=== PATIENT | female | born 1980 | race Caucasian/White ===

== ENCOUNTER 2024-07-31 17:31 | Inpatient (IN) | payer MEDICAID, SELFPAY ==
--- NOTE | ~2024-07-31 | XR_ITS ---
EXAMINATION: XR CHEST CLINICAL INFORMATION: Chest pain COMPARISON: None available. TECHNIQUE: Frontal view of the chest was obtained. FINDINGS: The heart is moderate to markedly enlarged. There is mild central pulmonary vascular prominence. No gross pulmonary edema is seen. Left basilar atelectasis is present. No focal consolidations or large effusions. XR/XR chest 1V IMPRESSION: Cardiomegaly with mild pulmonary vascular congestion. Electronically signed by: Agapito Welsh MD 07/31/2024 06:39 PM [facility]
--- NOTE | ~2024-07-31 | CT_ITS ---
EXAMINATION: CT ANGIOGRAM CHEST CLINICAL INFORMATION: Shortness of breath. Elevated d-dimer. Rule out PE. COMPARISON: None available. TECHNIQUE: Multiple axial images were obtained through the chest after the administration of 65 mL of Omnipaque 350 intravenous contrast. Extensive vascular post-processing including two-dimensional and three-dimensional reformatted images were created and reviewed on an independent workstation. This CT examination was performed using dose optimization techniques as appropriate, variously including the following: *Automated exposure control *Adjustment of mA and/or kV according to patient size (this includes techniques or standardized protocols for targeted exams where dose is matched to indication/reason for exam; i.e. extremities or head) *Use of iterative reconstruction technique DLP: 317 mGy-cm FINDINGS: Pulmonary arteries: Normal caliber. No appreciable pulmonary emboli. Heart and other vasculature: Global cardiomegaly. Thoracic aorta is normal in caliber. Contrast material is refluxed into the hepatic veins. Lymph nodes: No appreciable adenopathy Lungs and pleura: Linear subsegmental atelectasis in the left lower lobe. Interlobular septal thickening in the lung apices and bases is most consistent with mild interstitial pulmonary edema. No focal consolidation or suspicious pulmonary nodules. Central airways are clear. Small bilateral dependent pleural effusions. Chest wall and bones: Multilevel degenerative disc disease and thoracic spine. No acute fractures. Upper abdomen: No appreciable abnormalities. Other findings: There is a 2.1 cm hypoattenuating nodule in the right thyroid gland. CT/CT angio chest PE protocol IMPRESSION: 1. No evidence of pulmonary emboli. 2. Cardiomegaly with mild interstitial pulmonary edema and small bilateral pleural effusions. 3. A 2.1 cm hypoattenuating nodule in the right thyroid gland. Based on the recommendations of the ACR Incidental Thyroid Findings Committee (JACR 2014; 12(2):143-50), further evaluation by thyroid ultrasound is recommended for solitary incidental thyroid nodules greater than or equal to 1.5 cm in largest axial dimension in patients age 35 years and older who do not have limited life expectancy or significant morbidities, unless clinically warranted. Fleischner guidelines were followed. Electronically signed by: Jose Armando Ross MD 07/31/2024 10:28 PM [facility]
[2024-07-31 17:34] VITALS: BP 206/125; PULSE 117; RESP 18; TEMP 36.1; O2SAT 98; BMI 29.3
--- NOTE | 2024-07-31 17:43 | ECG_ITS ---
Test Reason : HYPERTENSION/SOB Blood Pressure : / mmHG Vent. Rate : 109 BPM Atrial Rate : 109 BPM P-R Int : 164 ms QRS Dur : 094 ms QT Int : 358 ms P-R-T Axes : 039 -09 027 degrees QTc Int : 482 ms Sinus tachycardia Possible Left atrial enlargement Left ventricular hypertrophy ( R in aVL , Jose A product ) Possible Lateral infarct , age undetermined Abnormal ECG No previous ECGs available Referred By: Mukesh Garcia Electronically Signed By:Atif Rodriguez
--- NOTE | 2024-07-31 17:45 | ED_ITS ---
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 Thakkar HPI narrative: 43-year-old [place] woman presented today with shortness of breath, productive cough for the past 5 days. Patient's symptoms started a month ago with upper respiratory symptoms of coughing, sneezing, flu-like symptoms then patient started to have exertional dyspnea and orthopnea, no gain weight, no lower extremity swelling or edema, no sick contacts, no recent travel. Patient stated that the symptoms is worsening that she has dyspnea at rest now, patient is a smoker with white clear sputum coughing. No recent travel, no lower extremity swelling or edema or tenderness. Related Data Home Medications ?Medication ?Instructions ?Recorded ?Confirmed valsartan 320 1 tab PO DAILY 08/01/24 08/01/24 mg-hydrochlorothiazide 25 mg tablet Allergies Allergy/AdvReac Type Severity Reaction Status Date / Time honey Allergy Swelling Verified 08/01/24 06:31 Review of Systems 2 Review of Systems: All other systems are reviewed and are negative Constitutional: Reports as per HPI and Reports no additional constitutional complaints Eyes: Reports as per HPI and Reports no additional eye complaints Reports system reviewed and no additional complaints, except as documented Cardiovascular: Reports as per HPI and Reports no additional cardiovascular complaints Respiratory: Reports as per HPI and Reports no additional respiratory complaints Gastrointestinal: Reports as per HPI and Reports no additional gastrointestinal complaints Genitourinary: Reports no additional female genitourinary complaints Musculoskeletal: Reports no additional musculoskeletal complaints Skin/Breast: Reports system reviewed and no additional complaints, except as docu Psychiatric: Reports no additional psychiatric complaints Endocrine: Reports no additional endocrine complaints Hematologic/Lymphatic: Reports no additional hematologic/lymphatic complaints Allergic/Immunologic: Reports no additional allergic/immunologic complaints Reports system reviewed and no additional complaints, except as documented and Reports Abnormal speech present [facility] Past Medical History Medical History (Updated 08/01/24 @ 10:07 by Atif Rodriguez MD) Hypertension Social History Social History Household Members: None Housing: Apartment Do you presently have visiting nurse or other home services: No Patient Tobacco Use Status: Current everyday Tobacco user Tobacco use type: Cigarette Cigarettes Per Day: 2 service: No Physical Exam ED Vital Signs: Vital Signs - 24 hr 07/31/24 17:34 07/31/24 18:31 07/31/24 19:13 Temperature 97 F Pulse Rate 117 H 112 H Respiratory Rate 18 24 H Blood Pressure 206/125 H 187/133 H 193/124 H Pulse Oximetry 98 97 Oxygen Delivery Method Room Air Room Air 07/31/24 19:13 07/31/24 21:08 07/31/24 23:03 Temperature 97.5 F 97.5 F Pulse Rate 103 H 106 H 100 Respiratory Rate 20 15 Blood Pressure 193/124 H 176/118 H 172/122 H Pulse Oximetry 96 97 Oxygen Delivery Method Room Air Room Air 07/31/24 23:12 Temperature Pulse Rate 98 Respiratory Rate Blood Pressure 178/126 H Pulse Oximetry Oxygen Delivery Method BMI result Body Mass Index 29.3 Vital signs have been reviewed and appear to be correct. Blood pressure elevated. Heart rate normal. Respiratory rate normal. Temperature normal. Oxygen saturation normal. Appearance: Alert. Oriented X3. No acute distress. Head: Normal external exam. Normocephalic. Atraumatic. No [place] signs noted. No raccoon eyes noted Eyes: PERRLA. EOMI. Conjunctiva and sclera normal. Eyelids normal. ENT: TM's Normal. Pharynx normal. Uvula midline. Moist mucous membranes. No trismus noted. No drooling noted. No muffled voice noted. Neck: Normal inspection. Neck supple. FROM. No adenopathy. Thyroid Normal. No meningeal signs. No neck mass noted. CVS: Normal heart rate and rhythm. Heart sound normal. No murmurs noted. Pulses normal throughout. Respiratory: No respiratory distress. Painless inspiration. Breath sounds normal. No wheezes/rales/rhonchi noted. Chest nontender. No accessory muscle usage noted or decreased air movement noted. Abdomen: Soft and nontender. Bowel sounds normal in all 4 quadrants. No distention noted. No organomegaly noted. No visible injury noted. Back: No CVA tenderness. Full range of motion noted. Skin: Skin warm and dry. Normal skin color. Normal skin turgor. No rashes/lesions/lacerations noted. Extremities: No lower extremity edema. Extremities exhibit normal range of motion. Extremities nontender. Neuro: Oriented X 3. Cranial nerve exam: II-XII are grossly intact No motor deficit. No sensory deficit. Reflexes normal. Course Course Course Narrative: RME: Done by Katerina Garcia. 43-year-old female presents to ED for shortness of breath. Patient is hypotensive history of high blood pressure. We will do EEG? Evaluation. Patient to be brought back to the ED immediately due to blood pressure. Reevaluation(s) Reevaluation #1: 43-year-old female with 4 weeks history of shortness of breath worsening over the last 5 days, physical exam/chest x-ray consistent with CHF, patient was slight improvement after Lasix and nitro. Elevated troponin with out delta changes or without EKG ischemic changes patient received nitroglycerin/Lasix for diuresis, patient also received aspirin and metoprolol for elevated troponin. CTA is negative for pulmonary embolism. Will admit for further cardiac evaluation. Time: 22:31 Medications Administered Generic Name Dose Route Start Last Admin Trade Name Freq PRN Reason Stop Dose Admin Empagliflozin 10 mg 08/01/24 10:45 08/01/24 10:40 Empagliflozin 10 Mg Tablet PO 10 mg DAILY NADIRA Administration Enoxaparin Sodium 40 mg 08/01/24 09:00 08/01/24 10:41 Enoxaparin Sodium 40 Mg/0.4 Ml Syringe SUBCUT 40 mg Q24H NADIRA Administration Furosemide 40 mg 08/01/24 09:00 08/01/24 10:41 Furosemide 40 Mg/4 Ml Vial IVPUSH 40 mg BID@0900,1800 NADIRA Administration Protocol Losartan Potassium 50 mg 08/01/24 09:00 08/01/24 10:40 Losartan Potassium 50 Mg Tablet PO 50 mg DAILY NADIRA Administration Protocol Sodium Chloride 3 ml 08/01/24 00:00 08/01/24 10:40 0.9 % Sodium Chloride Flush 3 Ml Syringe IVFLUSH 3 ml QSHIFT NADIRA Administration Spironolactone 25 mg 08/01/24 09:00 08/01/24 10:39 Spironolactone 25 Mg Tablet PO 25 mg DAILY NADIRA Administration Protocol Discontinued Medications Generic Name Dose Route Start Last Admin Trade Name Freq PRN Reason Stop Dose Admin Aspirin 325 mg 07/31/24 19:34 07/31/24 20:14 Aspirin 325 Mg Tablet PO 07/31/24 19:35 325 mg ONCE ONE Administration Furosemide 40 mg 07/31/24 18:46 07/31/24 19:13 Furosemide 40 Mg/4 Ml Vial IVPUSH 07/31/24 18:47 40 mg ONCE ONE Administration Protocol Levofloxacin 750 mg in 150 mls @ 100 mls/hr 07/31/24 18:46 07/31/24 20:56 Levaquin IV 07/31/24 20:15 Infused ONCE ONE Infusion Iohexol 100 ml 07/31/24 20:13 07/31/24 20:14 Iohexol 350 Mg/Ml 100 Ml Infus..Btl IV 07/31/24 20:14 65 ml ONCE ONE Administration Metoprolol Tartrate 50 mg 07/31/24 22:40 07/31/24 23:12 Metoprolol Tartrate 50 Mg Tablet PO 07/31/24 22:41 50 mg ONCE ONE Administration Protocol Nitroglycerin 0.5 inch 07/31/24 18:46 07/31/24 19:13 Nitroglycerin 2 % Oint 1 Gm Packet TRANSDERMA 07/31/24 18:47 0.5 inch ONCE ONE Administration Medical Decision Making Differential Diagnosis Differential Diagnoses: The differential diagnosis associated with the presentation includes (Pneumonia, pneumothorax, pleural effusion, pulmonary embolism, severe anemia, upper respiratory infection, CHF, ACS, viral myocarditis, electrolyte derangement.) Admission/Observation Consideration of admission/observation: Escalation of care including admission/observation considered Lab Data MDM Lab Attestation statement: I reviewed the patient's lab results. 08/01/24 06:34 08/01/24 06:34 Labs: Lab Results 07/31/24 07/31/24 07/31/24 Range/Units 18:16 18:30 19:03 WBC 9.1 (4.8-10.8) X10*3/uL RBC 4.91 (4.20-5.50) X10*6/uL Hgb 13.2 (12.0-16.0) g/dl Hct 40.7 (37.0-47.0) % MCV 82.9 (80.0-98.0) fL MCH 26.9 L (27.0-33.0) pg MCHC 32.4 (31.0-35.0) g/dl RDW 14.7 (11.0-16.0) % Plt Count 382 (160-400) X10*3/uL MPV 9.9 (9.4-12.3) fL Immature Gran % (Auto) 0.2 (0.0-0.4) % Neut % (Auto) 65.6 (45-73) % Lymph % (Auto) 28.9 (20-40) % [place] % (Auto) 4.8 (2-11) % Eos % (Auto) 0.2 (0-4) % Baso % (Auto) 0.3 (0-2) % Lymph # (Auto) 2.6 (1.2-4.9) X10*3/uL [place] # (Auto) 0.4 (0.1-1.2) X10*3/uL Eos # (Auto) 0.0 (0.0-0.4) X10*3/uL Baso # (Auto) 0.0 (0.0-0.2) X10*3/uL Abs Immat Gran (auto) 0.02 (0.00-0.03) X10*3/uL Absolute Neuts (auto) 6.0 (2.0-8.3) x10*3/uL Absolute Nucleated RBC 0.000 (0.0-0.012) X10*3/uL Nucleated RBC % (auto) 0.0 (0.0-0.2) /100WBC PT 15.3 H (10.9-12.4) SEC INR 1.3 H (0.9-1.1) APTT 28.0 (26.0-36.8) SEC D-Dimer High Sensitivty 292 NG/ML Sodium 136 (135-145) mmol/L Potassium 3.5 (3.3-5.1) mmol/L Chloride 104 (96-108) mmol/L Carbon Dioxide 22 (22-29) mmol/L Anion Gap 14 (12-20) BUN 8 L (9-16) mg/dL Creatinine 0.71 (0.5-1.4) mg/dL Estim Creat Clear Calc 104.6 Estimated GFR > 60 Random Glucose 147 H (60-115) mg/dL Lactic Acid 1.7 (0.5-2.0) mmol/L Calcium 8.9 (8.4-10.2) mg/dL Total Bilirubin 1.5 H (0.0-1.0) mg/dL AST 33 H (5-31) U/L ALT 24 (0-31) U/L Alkaline Phosphatase 67 (39-117) U/L Lactate Dehydrogenase 261 H (122-220) U/L Troponin I High Sens 120.4 H* (<3.5-17.0) ng/L C-Reactive Protein 1.18 H (< or = 0.50) mg/dL Total Protein 6.3 L (6.5-8.0) g/dL Albumin 3.9 (3.5-5.0) g/dL TSH 3.42 (0.32-4.0) uIU/mL Beta HCG, Quant < 2 mIU/mL Urine Color Dark Yellow Urine Appearance Cloudy Urine pH 5.0 (5.0-9.0) Ur Specific [place] 1.025 (1.005-1.025) Urine Protein 100 (2+) H (Neg-Trace) mg/dL Urine Glucose (UA) Negative (Negative) mg/dL Urine Ketones Trace (Negative) mg/dL Urine Blood Moderate (2+) H (Negative) Urine Nitrite Negative (Negative) Ur Leukocyte Esterase Negative (Negative) Urine RBC 6-10 H (0-2) /HPF Urine WBC 0-5 (0-5) /HPF Ur Squamous Epith Cells >20 (0-2) /HPF Urine Bacteria None Seen (None Seen) Hyaline Casts >20 (0-2) /LPF Urine Yeast Present Urine Test NEGATIVE (NEGATIVE) Influenza Type A (PCR) NEGATIVE (Negative) Influenza Type B (PCR) NEGATIVE (Negative) RSV RNA Qual (PCR) NEGATIVE (Negative) SARS-CoV-2 RNA (RT-PCR) NEGATIVE (Negative) 07/31/24 Range/Units 20:35 WBC (4.8-10.8) X10*3/uL RBC (4.20-5.50) X10*6/uL Hgb (12.0-16.0) g/dl Hct (37.0-47.0) % MCV (80.0-98.0) fL MCH (27.0-33.0) pg MCHC (31.0-35.0) g/dl RDW (11.0-16.0) % Plt Count (160-400) X10*3/uL MPV (9.4-12.3) fL Immature Gran % (Auto) (0.0-0.4) % Neut % (Auto) (45-73) % Lymph % (Auto) (20-40) % [place] % (Auto) (2-11) % Eos % (Auto) (0-4) % Baso % (Auto) (0-2) % Lymph # (Auto) (1.2-4.9) X10*3/uL [place] # (Auto) (0.1-1.2) X10*3/uL Eos # (Auto) (0.0-0.4) X10*3/uL Baso # (Auto) (0.0-0.2) X10*3/uL Abs Immat Gran (auto) (0.00-0.03) X10*3/uL Absolute Neuts (auto) (2.0-8.3) x10*3/uL Absolute Nucleated RBC (0.0-0.012) X10*3/uL Nucleated RBC % (auto) (0.0-0.2) /100WBC PT (10.9-12.4) SEC INR (0.9-1.1) APTT (26.0-36.8) SEC D-Dimer High Sensitivty NG/ML Sodium (135-145) mmol/L Potassium (3.3-5.1) mmol/L Chloride (96-108) mmol/L Carbon Dioxide (22-29) mmol/L Anion Gap (12-20) BUN (9-16) mg/dL Creatinine (0.5-1.4) mg/dL Estim Creat Clear Calc Estimated GFR Random Glucose (60-115) mg/dL Lactic Acid (0.5-2.0) mmol/L Calcium (8.4-10.2) mg/dL Total Bilirubin (0.0-1.0) mg/dL AST (5-31) U/L ALT (0-31) U/L Alkaline Phosphatase (39-117) U/L Lactate Dehydrogenase (122-220) U/L Troponin I High Sens 137.4 H* (<3.5-17.0) ng/L C-Reactive Protein (< or = 0.50) mg/dL Total Protein (6.5-8.0) g/dL Albumin (3.5-5.0) g/dL TSH (0.32-4.0) uIU/mL Beta HCG, Quant mIU/mL Urine Color Urine Appearance Urine pH (5.0-9.0) Ur Specific [place] (1.005-1.025) Urine Protein (Neg-Trace) mg/dL Urine Glucose (UA) (Negative) mg/dL Urine Ketones (Negative) mg/dL Urine Blood (Negative) Urine Nitrite (Negative) Ur Leukocyte Esterase (Negative) Urine RBC (0-2) /HPF Urine WBC (0-5) /HPF Ur Squamous Epith Cells (0-2) /HPF Urine Bacteria (None Seen) Hyaline Casts (0-2) /LPF Urine Yeast Urine Test (NEGATIVE) Influenza Type A (PCR) (Negative) Influenza Type B (PCR) (Negative) RSV RNA Qual (PCR) (Negative) SARS-CoV-2 RNA (RT-PCR) (Negative) Independent Interpretation I performed an independent interpretation of an: Plain X-Ray (Chest: Cardiomegaly with mild pulmonary vascular congestion.) and CT Scan (CT angio of the chest:[place] [id number] CT Scan Report Signed Patient: Nani Camejo MR#: [id number] : 1980 Acct:[id number] Age/Sex: 43 / F ADM Date: 07/31/24 Loc: .ED Attending Dr: Ordering Physician: Irene Thakkar MD Date of Service: 07/31/) Radiology Impression Discussion of test interpretation with radiology: I have reviewed the radiologist's reading. Discharge Plan Discharge Clinical Impression: CHF (congestive heart failure) Patient Disposition: Admitted As Inpatient Interventions: Admission Worksheet (ED) Last Done: 08/01/24 02:24 Discharge Date/Time: 08/01/24 02:25
[2024-07-31 18:23] LABS: MANUAL DIFF FLAG NO
[2024-07-31 18:31] VITALS: BP 187/133; PULSE 112; RESP 24; O2SAT 97
[2024-07-31 18:31] LABS: Basophils Percent Auto 0.3 % (0-2); Eosinophils Percent Auto 0.2 % (0-4); Hematocrit 40.7 % (37.0-47.0); Hemoglobin 13.2 g/dl (12.0-16.0); Imm Gran Abs Auto 0.02 X10*3/uL (0.00-0.03); Imm Gran Pct Auto 0.2 % (0.0-0.4); Lymphocytes Absolute Auto 2.6 X10*3/uL (1.2-4.9); Lymphocytes Percent Auto 28.9 % (20-40); Mean Corpuscular HGB Conc 32.4 g/dl (31.0-35.0); Mean Corpuscular Hemoglobin 26.9 pg (27.0-33.0); Mean Corpuscular Volume 82.9 fL (80.0-98.0); Mean Platelet Volume 9.9 fL (9.4-12.3); Monocytes Absolute Auto 0.4 X10*3/uL (0.1-1.2); Monocytes Percent Auto 4.8 % (2-11); Neutrophils Percent Auto 65.6 % (45-73); Platelet Count 382 X10*3/uL (160-400); Red Blood Count 4.91 X10*6/uL (4.20-5.50); Red Cell Distribution Width 14.7 % (11.0-16.0); White Blood Count 9.1 X10*3/uL (4.8-10.8)
[2024-07-31 18:41] LABS: Alanine Aminotransferase 24 U/L (0-31); Albumin Level 3.9 g/dL (3.5-5.0); Alkaline Phosphatase 67 U/L (39-117); Anion Gap 14 (12-20); Aspartate Amino Transferase 33 U/L (5-31); Bilirubin Total 1.5 mg/dL (0.0-1.0); Blood Urea Nitrogen 8 mg/dL (9-16); Calcium 8.9 mg/dL (8.4-10.2); Carbon Dioxide 22 mmol/L (22-29); Chloride 104 mmol/L (96-108); Creatinine Clr Calc Pharmacy 104.6; Estimated Glomerular Filt Rate > 60; Glucose Random 147 mg/dL (60-115); Potassium 3.5 mmol/L (3.3-5.1); Sodium 136 mmol/L (135-145); Total Protein 6.3 g/dL (6.5-8.0)
[2024-07-31 18:47] LABS: Appearance Urine Cloudy; Color Urine Dark Yellow; Glucose Urine UA Negative (Negative); Leukocyte Esterase Urine Negative (Negative); Nitrite Urine Negative (Negative); Specific Gravity - Urine 1.025 (1.005-1.025); UMIC TRIGGER UACC YES; Urine Blood Moderate (2+) (Negative); Urine Ketones Trace mg/dL (Negative); Urine Protein 100 (2+) mg/dL (Neg-Trace)
[2024-07-31 18:48] LABS: UPreg QC Valid YES; Urine Pregnancy NEGATIVE (NEGATIVE)
[2024-07-31 18:49] LABS: HCG Quantitative < 2 mIU/mL
[2024-07-31 19:01] LABS: Influenza A PCR NEGATIVE (Negative); Influenza B PCR NEGATIVE (Negative); Resp Syncy Virus RNA Qual PCR NEGATIVE (Negative); SARS COV2 PCR INHOUSE NEGATIVE (Negative)
[2024-07-31 19:02] LABS: Bacteria Urine None Seen (None Seen); Hyaline Casts Urine >20 /LPF (0-2); Squamous Epithelial Cell Urine >20 /HPF (0-2); WBC Urine 0-5 /HPF (0-5)
[2024-07-31 19:08] LABS: Troponin-I High Sensitivity 120.4 ng/L (<3.5-17.0)
[2024-07-31 19:13] VITALS: BP 193/124; PULSE 103
[2024-07-31] MEDS: Furosemide 40 MG/4 ML VIAL IVPUSH (19:13)
[2024-07-31] MEDS: levoFLOXacin/D5W 750 MG/150 ML PIGGYBACK 100 MG IV (19:13)
[2024-07-31] MEDS: Nitroglycerin 2 % Oint 1 GM Packet 0.5 INCH TRANSDERMA (19:13)
[2024-07-31 19:20] LABS: INTERNATIONAL NORM RATIO 1.3 (0.9-1.1); Prothrombin Time 15.3 SEC (10.9-12.4)
[2024-07-31 19:22] LABS: D Dimer High Sensitivity 292 NG/ML
[2024-07-31 19:24] LABS: Lactic Acid 1.7 mmol/L (0.5-2.0)
[2024-07-31] MEDS: Aspirin 325 MG TABLET PO (20:14)
[2024-07-31] MEDS: iohexoL 350 MG/ML 100 ML INFUS..BTL IV (20:14)
[2024-07-31 21:06] LABS: Troponin-I High Sensitivity 137.4 ng/L (<3.5-17.0)
[2024-07-31 21:08] VITALS: BP 176/118; PULSE 106; RESP 20; TEMP 36.4; O2SAT 96
[2024-07-31 23:03] VITALS: BP 172/122; PULSE 100; RESP 15; TEMP 36.4; O2SAT 97
[2024-07-31 23:12] VITALS: BP 178/126; PULSE 98
[2024-07-31] MEDS: Metoprolol Tartrate 50 MG TABLET PO (23:12)
--- NOTE | 2024-07-31 23:42 | PM.IMHP ---
History of Present Illness Date of Service: 07/31/24 Chief Complaint: Dyspnea A 43 years old lady with PMH of HTN presents to the hospital with 1 week of worsening dyspnea and orthopena. The patient reports getting sick 3 weeks ago with upper respiratory track infection with cough and myalgia that she did not completely recovered from as she started to feel more short of breath with exertion since then. over the last week she has been having more dyspnea with short distences and has to stop more often to catch her breath. she can not sleep on her back anymore and has been sleeping semi-sitting position. No chest pain, palpitations, vomiting, diarrhea or urinary symptoms. but she reported nausea on occasions. In ED found to be hypertensive and tachycardic. Elevated Trop of 126 and 138. EKG w LVH bit no ST\T wave changes to suggest ACS. BNP pending. CXR showed mild vascular congestion. CTA negative for PE but showing small effusions and congestion. will be admitted for further work up and management. Review of Systems Review of Systems: No fever, chills or weakness No chest pain, palpitation reporting shortness of breath, dysnpea and orthopnea No abdominal pain, nausea or vomiting No urinary symptoms No any rash or wounds PMFSH Medical History Hypertension Social History Smoked in Last 30 Days: Yes Use of substances other than those prescribed or required for medical reasons: No Advance Directives: No Advance Directives Information Provided: Yes Patient : No Meds Allergies Allergy/AdvReac Type Severity Reaction Status Date / Time No Known Allergies Allergy Verified 07/31/24 17:43 Active Medications: Current Medications Acetaminophen (Acetaminophen 325 Mg Tablet) 650 mg PO Q6H PRN PRN Reason: Pain, Mild 1-3,fever,headache Calcium Carbonate (Calcium Carbonate 750 Mg Tab.Chew) 750 mg PO Q4H PRN PRN Reason: Heartburn Enoxaparin Sodium (Enoxaparin Sodium 40 Mg/0.4 Ml Syringe) 40 mg SUBCUT Q24H NADIRA Magnesium Hydroxide (Milk Of Magnesia 30 Ml Oral.Susp) 30 ml PO DAILY PRN PRN Reason: Constipation Melatonin (Melatonin 3 Mg Tablet) 6 mg PO BEDTIME PRN PRN Reason: Insomnia Ondansetron HCl (Ondansetron Hcl 4 Mg/2 Ml Vial) 4 mg IVPUSH Q8H PRN PRN Reason: Nausea and Vomiting Sodium Chloride (0.9 % Sodium Chloride Flush 3 Ml Syringe) 3 ml IVFLUSH QSHIFT NADIRA Physical Exam Vital Signs and Narrative: Vital Signs: Last Vital Signs Temp 97.5 F 07/31/24 23:03 Pulse 98 07/31/24 23:12 Resp 15 07/31/24 23:03 BP 178/126 H 07/31/24 23:12 Pulse Ox 97 07/31/24 23:03 O2 Del Method Room Air 07/31/24 23:03 BMI result Body Mass Index 29.3 Const: Other: Constitutional : Awake, interactive, not in distress Neck : Normal inspection, Supple Cardiovascular : RRR, elevated JVP, trace bilateral lower extremity edema Respiratory : fair bilateral air entry, no clear crackles, wheezes or rhonchi Gastrointestinal: soft, lax, Normal bowel sounds, Non tender Skin : Warm, Dry Neurological : Alert & oriented x3, No focal deficit Results Labs 07/31/24 18:16 07/31/24 18:16 Labs: Laboratory Results - last 24 hr 07/31/24 07/31/24 07/31/24 18:16 18:30 19:03 MCV 82.9 MCH 26.9 L MCHC 32.4 RDW 14.7 Plt Count 382 MPV 9.9 Immature Gran % (Auto) 0.2 Neut % (Auto) 65.6 Lymph % (Auto) 28.9 [place] % (Auto) 4.8 Eos % (Auto) 0.2 Baso % (Auto) 0.3 Lymph # (Auto) 2.6 [place] # (Auto) 0.4 Eos # (Auto) 0.0 Baso # (Auto) 0.0 Abs Immat Gran (auto) 0.02 Absolute Neuts (auto) 6.0 Absolute Nucleated RBC 0.000 Nucleated RBC % (auto) 0.0 PT 15.3 H INR 1.3 H APTT 28.0 D-Dimer High Sensitivty 292 Anion Gap 14 Estim Creat Clear Calc 104.6 Estimated GFR > 60 Random Glucose 147 H Lactic Acid 1.7 Calcium 8.9 Total Bilirubin 1.5 H AST 33 H ALT 24 Alkaline Phosphatase 67 Troponin I High Sens 120.4 H* Total Protein 6.3 L Albumin 3.9 Beta HCG, Quant < 2 Urine Color Dark Yellow Urine Appearance Cloudy Urine pH 5.0 Ur Specific [place] 1.025 Urine Protein 100 (2+) H Urine Glucose (UA) Negative Urine Ketones Trace Urine Blood Moderate (2+) H Urine Nitrite Negative Ur Leukocyte Esterase Negative Urine RBC 6-10 H Urine WBC 0-5 Ur Squamous Epith Cells >20 Urine Bacteria None Seen Hyaline Casts >20 Urine Yeast Present Urine Test NEGATIVE Influenza Type A (PCR) NEGATIVE Influenza Type B (PCR) NEGATIVE RSV RNA Qual (PCR) NEGATIVE SARS-CoV-2 RNA (RT-PCR) NEGATIVE 07/31/24 20:35 MCV MCH MCHC RDW Plt Count MPV Immature Gran % (Auto) Neut % (Auto) Lymph % (Auto) [place] % (Auto) Eos % (Auto) Baso % (Auto) Lymph # (Auto) [place] # (Auto) Eos # (Auto) Baso # (Auto) Abs Immat Gran (auto) Absolute Neuts (auto) Absolute Nucleated RBC Nucleated RBC % (auto) PT INR APTT D-Dimer High Sensitivty Anion Gap Estim Creat Clear Calc Estimated GFR Random Glucose Lactic Acid Calcium Total Bilirubin AST ALT Alkaline Phosphatase Troponin I High Sens 137.4 H* Total Protein Albumin Beta HCG, Quant Urine Color Urine Appearance Urine pH Ur Specific [place] Urine Protein Urine Glucose (UA) Urine Ketones Urine Blood Urine Nitrite Ur Leukocyte Esterase Urine RBC Urine WBC Ur Squamous Epith Cells Urine Bacteria Hyaline Casts Urine Yeast Urine Test Influenza Type A (PCR) Influenza Type B (PCR) RSV RNA Qual (PCR) SARS-CoV-2 RNA (RT-PCR) Imaging Radiologist's Impressions: Impressions Chest X-Ray 07/31/24 17:50 IMPRESSION: Cardiomegaly with mild pulmonary vascular congestion. Electronically signed by: Agapito Welsh MD 07/31/2024 06:39 PM [facility] [place] Chest CTA 07/31/24 19:37 IMPRESSION: 1. No evidence of pulmonary emboli. 2. Cardiomegaly with mild interstitial pulmonary edema and small bilateral pleural effusions. 3. A 2.1 cm hypoattenuating nodule in the right thyroid gland. Based on the recommendations of the ACR Incidental Thyroid Findings Committee (JACR 2014; 12(2):143-50), further evaluation by thyroid ultrasound is recommended for solitary incidental thyroid nodules greater than or equal to 1.5 cm in largest axial dimension in patients age 35 years and older who do not have limited life expectancy or significant morbidities, unless clinically warranted. Fleischner guidelines were followed. Electronically signed by: Jose Armando Ross MD 07/31/2024 10:28 PM EST Assessment and Plan (1) Elevated troponin: Status: Acute (2) CHF (congestive heart failure): Status: Acute (3) Thyroid nodule: Status: Acute Plan A 43 years old lady with PMH of HTN presents to the hospital with 1 week of worsening dyspnea and orthopena. Orthopnea, Dyspnea likely 2/2 acute onset CHF, unspecified could be post viral, chronic HTN pending BNP CXR and CTA reporting increase congestion check Echo check TSH IV Lasix I\O Elevated Trop I no delta change, likely demand related check LDH, ESR and CRP trend Trop I Cardiology consult Uncontrolled HTN Patient uses [employer] medicine not sure of the name Start Losartan and Amlodipine for now Thyroid nodule CTA reporting 2.1 cm nodule for OP US evaluation DVT PPx Lovenox The patient will need 2 overnight hospital stay for evalaution of CHF exacerbation pending Echo and cardiology evaluation Quality Stroke Does the patient have a stroke diagnosis?: No VTE Prior VTE?: No VTE Risk Level:: Medical - moderate - high VTE Device Contraindication: Treatment Not Indicated VTE Drug Contraindication: N/A - Med Ordered
[2024-08-01] VITALS (7 sets, daily range): BP systolic 160–180; BP diastolic 93–100; PULSE 86–100; RESP 16–20; TEMP 36.4–37.1; O2SAT 94–97
[2024-08-01 00:06] LABS: C Reactive Protein 1.18 mg/dL (< or = 0.50); Lactate Dehydrogenase 261 U/L (122-220)
[2024-08-01 00:25] LABS: Erythrocyte Sedimentation Rate 2 MM/HR (0-20)
[2024-08-01 00:40] LABS: Thyroid Stimulating Hormone 3.42 uIU/mL (0.32-4.0)
[2024-08-01 06:44] LABS: MANUAL DIFF FLAG NO
[2024-08-01 06:47] LABS: Basophils Percent Auto 0.3 % (0-2); Eosinophils Percent Auto 0.5 % (0-4); Hematocrit 39.1 % (37.0-47.0); Hemoglobin 12.4 g/dl (12.0-16.0); Imm Gran Abs Auto 0.03 X10*3/uL (0.00-0.03); Imm Gran Pct Auto 0.3 % (0.0-0.4); Lymphocytes Absolute Auto 2.4 X10*3/uL (1.2-4.9); Lymphocytes Percent Auto 27.3 % (20-40); Mean Corpuscular HGB Conc 31.7 g/dl (31.0-35.0); Mean Corpuscular Hemoglobin 26.1 pg (27.0-33.0); Mean Corpuscular Volume 82.3 fL (80.0-98.0); Mean Platelet Volume 9.8 fL (9.4-12.3); Monocytes Absolute Auto 0.6 X10*3/uL (0.1-1.2); Neutrophils Absolute Auto 5.6 x10*3/uL (2.0-8.3); Neutrophils Percent Auto 64.6 % (45-73); Platelet Count 366 X10*3/uL (160-400); Red Blood Count 4.75 X10*6/uL (4.20-5.50); Red Cell Distribution Width 14.6 % (11.0-16.0); White Blood Count 8.7 X10*3/uL (4.8-10.8)
--- NOTE | 2024-08-01 07:00 | CA_ITS ---
Transthoracic Echocardiogram Patient (Last, First, Middle): Nani Camejo, Gender: Female Date of : 1980 Age: 43 Procedure Date: 08/01/2024 Procedure Type: Transthoracic Echocardiogram Location: [facility] [place] Height: 165.1 cm Weight: 79.83 kg BSA: 1.87 m2 Heart Rate: 95 bpm BP: 180 / 100 mmHg Manugrapher: AHKEEM Referring MD: Nel Koch MD Symptoms: New onset heart failure Study Quality: Adequate w/Contrast ECG Rhythm: Tachycardia Conclusions: - Moderately increased left ventricular cavity size. There is mildly increased left ventricular wall thickness. The left ventricular systolic function is severely decreased. The visually estimated ejection fraction is between 20-25%. - Normal right ventricular cavity size and systolic function. - The left atrium is severely dilated. The right atrium is likely dilated. Findings Procedure Information Contrast agent, definity, is being given per protocol without apparent complications. Left Ventricle Moderately increased left ventricular cavity size. There is mildly increased left ventricular wall thickness. The left ventricular systolic function is severely decreased. The visually estimated ejection fraction is between 20 25%. There is moderate global hypokinesis. Abnormal diastolic function is noted. Spectral Doppler is indicative of a restrictive filling pattern. Elevated filling pressures. Right Ventricle Normal right ventricular cavity size and systolic function. Atria The left atrium is severely dilated. The right atrium is likely dilated. Aortic Valve There is no aortic valve stenosis. There is no aortic valve regurgitation. Trileaflet aortic valve. Mild thickening of the non coronary cusp of the aortic valve. Mitral Valve The mitral valve appears normal. There is trace mitral valve regurgitation. There is no mitral valve stenosis. Mild apical tethering of the mitral valve leaflets with mild central mitral regurgitation. Pulmonic Valve The pulmonic valve is normal. There is trace pulmonic valve regurgitation. Tricuspid Valve There is trace tricuspid valve regurgitation. Normal right atrial pressure. There is no evidence of pulmonary hypertension. Great Vessels All visible segments of the aorta are normal in size. The visualized portions of the pulmonary artery and branches are normal. Venous The inferior vena cava is normal in size and collapses greater than 50% with inspiration. Pericardium/Pleural There is no evidence of pericardial effusion. There is a trivial pericardial effusion. Prior Study Comparison No prior study available for comparison. Measurements 2D Linear Measurements IVSd: 1.08 0.6-0.9/0.6-1.0 cm LVIDd: 5.89 3.9-5.3/4.2-5.9 cm LVIDd Index: 3.15 2.4-3.2/2.2-3.1 cm/m2 LVIDs: 5.11 2.0-3.6 cm LVPWd: 1.24 0.7-1.1 cm LA Diam: 4.40 2.7-3.8/3.0-4.0 cm LAIDs Index: 2.35 1.5-2.3 cm/m2 LV Mass: 363.01 67-162/88-224 g LV Mass Index: 194.12 43-95/49-115 g/m2 LVOT Diam: 2.00 3.0+(-)1.3 cm 2D Systolic Function EF 4C: 24.20 >55% EF 2C: 42.90 >55% EF BiP: 35.00 >55% Mitral Valve MV Pk E: 1.33 MV PK A: 0.39 MV Decel Time: 180.00 E/A: 3.40 E'Lateral: 6.53 E'Medial: 4.03 E/E' Med: 33.00 E/E' Lat: 20.40 PHT: 53.00 MVA PHT: 4.15 Decel [place]: 7.43 MR Vol - PW Dopp: 6.52 MR VTI: 1.63 MR ERO: 4.00 MR Alias Martinez: 0.39 MR RAD: 0.30 Aortic Valve AoV Pk Martinez: 1.49 AoV Mn Martinez: 1.04 AoV VTI: 0.26 AoV Pk Grad: 9.00 Aov Mn Grad: 5.00 LALIT Cont.VTI: 2.24 LVOT LVOT Pk Martinez: 1.11 LVOT Mn Martinez: 0.78 LVOT VTI: 0.19 LVOT Pk Grad: 5.00 LVOT Mn Grad: 3.00 LVOT Diam: 2.00 LVOT Area: 3.14 Diastolic Function MV Pk E: 1.33 MV Pk A: 0.39 E/A: 3.40 E'Medial: 4.03 E/E' Med: 33.00 E' Laterial: 6.53 E/E' Lat: 20.40 Right Ventricle TAPSE (mm): 23.40 TVS' Martinez: 12.40 Tricuspid Valve TR Pk Martinez: 2.49 TR Pk Grad: 25.00 RA Press: 3.00 RVSP: 28.00 Great Vessels Aorta Sinus of Valsalva: 2.70 2.0-3.5 cm Ao Asc: 3.10 2.1-3.4 cm Pulmonary Valve PV Pk Martinez: 0.94 Peak PV Grad: 4.00 Updated in Other Vendor System with Status of Final Atif Rodriguez MD electronically signed on 08/01/2024 10:32:00 AM with status of Final
[2024-08-01 07:01] LABS: Alanine Aminotransferase 23 U/L (0-31); Albumin Level 3.6 g/dL (3.5-5.0); Alkaline Phosphatase 60 U/L (39-117); Anion Gap 11 (12-20); Aspartate Amino Transferase 39 U/L (5-31); Bilirubin Total 1.3 mg/dL (0.0-1.0); Blood Urea Nitrogen 9 mg/dL (9-16); Calcium 8.6 mg/dL (8.4-10.2); Carbon Dioxide 26 mmol/L (22-29); Chloride 102 mmol/L (96-108); Creatinine Clr Calc Pharmacy 110.8; Estimated Glomerular Filt Rate > 60; Glucose Random 93 mg/dL (60-115); Magnesium 1.6 mg/dL (1.6-2.6); Potassium 3.2 mmol/L (3.3-5.1); Sodium 136 mmol/L (135-145); Total Protein 5.9 g/dL (6.5-8.0)
[2024-08-01 07:38] LABS: Troponin-I High Sensitivity 142.6 ng/L (<3.5-17.0)
--- NOTE | 2024-08-01 08:01 | PHA.MEDREC ---
Addendum entered by Roberta Paredes misha 08/01/24 08:04: Pt takes 350mg valsartan and 25mg HCTZ in brand name Co-Diovan (she wrote Codovian) Original Note: Pharmacy Consult ? Medication Reconciliation Pharmacy has completed the medication reconciliation. Spoke with pt at bedside to confirm medications. Pt states she is on only 1 medication but is only available from [place] and is not available in the [place]. She wrote the medication name as Codovian 350/25mg . Upon researching this medication, I believe it to be Co-Diovan, which is Valsartan 350mg & HCTZ 25mg.
--- NOTE | 2024-08-01 08:48 | PM.CNCAR ---
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 She was taking some Irish medicine which we do not know the exact generic name yet. She is presenting with 5 days of shortness of breath orthopnea and PND. Significantly elevated blood pressures. Short of breath with minimal activities. No chest discomfort. She has mildly elevated troponin levels. She is quite symptomatic. She is saying she had workup done in [place] for secondary causes of hypertension and no cause was found. Labs EKGs reviewed. [facility] Past Medical History Medical History (Updated 08/01/24 @ 10:07 by Atif Rodriguez MD) Hypertension Social History Social History Household Members: None Housing: Apartment Do you presently have visiting nurse or other home services: No Patient Tobacco Use Status: Current everyday Tobacco user Tobacco use type: Cigarette Cigarettes Per Day: 2 Meds Allergies Allergy/AdvReac Type Severity Reaction Status Date / Time honey Allergy Swelling Verified 08/01/24 06:31 Active Medications: Current Medications Acetaminophen (Acetaminophen 325 Mg Tablet) 650 mg PO Q6H PRN PRN Reason: Pain, Mild 1-3,fever,headache Calcium Carbonate (Calcium Carbonate 750 Mg Tab.Chew) 750 mg PO Q4H PRN PRN Reason: Heartburn Enoxaparin Sodium (Enoxaparin Sodium 40 Mg/0.4 Ml Syringe) 40 mg SUBCUT Q24H NADIRA Magnesium Hydroxide (Milk Of Magnesia 30 Ml Oral.Susp) 30 ml PO DAILY PRN PRN Reason: Constipation Melatonin (Melatonin 3 Mg Tablet) 6 mg PO BEDTIME PRN PRN Reason: Insomnia Ondansetron HCl (Ondansetron Hcl 4 Mg/2 Ml Vial) 4 mg IVPUSH Q8H PRN PRN Reason: Nausea and Vomiting Sodium Chloride (0.9 % Sodium Chloride Flush 3 Ml Syringe) 3 ml IVFLUSH QSHIFT NADIRA Last Admin: 08/01/24 03:02 Dose: Not Given Home Medications ?Medication ?Instructions ?Recorded ?Confirmed ?Last Taken ?Type valsartan 320 1 tab PO DAILY 08/01/24 08/01/24 07/31/24 History mg-hydrochlorothiazide 25 mg tablet Physical Exam Vital Signs: Vital Signs: Last Vital Signs Temp 97.9 F 08/01/24 07:34 Pulse 86 08/01/24 07:34 Resp 18 08/01/24 07:34 BP 180/100 H 08/01/24 07:34 Pulse Ox 97 08/01/24 07:34 O2 Del Method Room Air 08/01/24 07:34 BMI result Body Mass Index 29.3 GENERAL APPEARANCE: in no acute distress, pleasant. NECK: no carotid bruit, + jugular venous distention. SKIN: no suspicious lesions, warm and dry. HEART: no murmurs, regular rate and rhythm. Tachycardic. S4 gallop. LUNGS: clear to auscultation bilaterally. ABDOMEN: soft, nontender. EXTREMITIES: no edema. PERIPHERAL PULSES: equal. NEUROLOGIC: No gross deficits, AAO X 3 Objective Labs and Meds 08/01/24 06:34 08/01/24 06:34 Lab results: Laboratory Results - last 24 hr 07/31/24 07/31/24 07/31/24 18:16 18:30 19:03 WBC 9.1 RBC 4.91 Hgb 13.2 Hct 40.7 MCV 82.9 MCH 26.9 L MCHC 32.4 RDW 14.7 Plt Count 382 MPV 9.9 Immature Gran % (Auto) 0.2 Neut % (Auto) 65.6 Lymph % (Auto) 28.9 [place] % (Auto) 4.8 Eos % (Auto) 0.2 Baso % (Auto) 0.3 Lymph # (Auto) 2.6 [place] # (Auto) 0.4 Eos # (Auto) 0.0 Baso # (Auto) 0.0 Abs Immat Gran (auto) 0.02 Absolute Neuts (auto) 6.0 Absolute Nucleated RBC 0.000 Nucleated RBC % (auto) 0.0 ESR PT 15.3 H INR 1.3 H APTT 28.0 D-Dimer High Sensitivty 292 Sodium 136 Potassium 3.5 Chloride 104 Carbon Dioxide 22 Anion Gap 14 BUN 8 L Creatinine 0.71 Estim Creat Clear Calc 104.6 Estimated GFR > 60 Random Glucose 147 H Lactic Acid 1.7 Calcium 8.9 Magnesium Total Bilirubin 1.5 H AST 33 H ALT 24 Alkaline Phosphatase 67 Lactate Dehydrogenase 261 H Troponin I High Sens 120.4 H* C-Reactive Protein 1.18 H Total Protein 6.3 L Albumin 3.9 TSH 3.42 Beta HCG, Quant < 2 Urine Color Dark Yellow Urine Appearance Cloudy Urine pH 5.0 Ur Specific [place] 1.025 Urine Protein 100 (2+) H Urine Glucose (UA) Negative Urine Ketones Trace Urine Blood Moderate (2+) H Urine Nitrite Negative Ur Leukocyte Esterase Negative Urine RBC 6-10 H Urine WBC 0-5 Ur Squamous Epith Cells >20 Urine Bacteria None Seen Hyaline Casts >20 Urine Yeast Present Urine Test NEGATIVE Influenza Type A (PCR) NEGATIVE Influenza Type B (PCR) NEGATIVE RSV RNA Qual (PCR) NEGATIVE SARS-CoV-2 RNA (RT-PCR) NEGATIVE 07/31/24 07/31/24 08/01/24 20:35 23:50 06:34 WBC 8.7 RBC 4.75 Hgb 12.4 Hct 39.1 MCV 82.3 MCH 26.1 L MCHC 31.7 RDW 14.6 Plt Count 366 MPV 9.8 Immature Gran % (Auto) 0.3 Neut % (Auto) 64.6 Lymph % (Auto) 27.3 [place] % (Auto) 7.0 Eos % (Auto) 0.5 Baso % (Auto) 0.3 Lymph # (Auto) 2.4 [place] # (Auto) 0.6 Eos # (Auto) 0.0 Baso # (Auto) 0.0 Abs Immat Gran (auto) 0.03 Absolute Neuts (auto) 5.6 Absolute Nucleated RBC 0.000 Nucleated RBC % (auto) 0.0 ESR 2 PT INR APTT D-Dimer High Sensitivty Sodium 136 Potassium 3.2 L Chloride 102 Carbon Dioxide 26 Anion Gap 11 L BUN 9 Creatinine 0.67 Estim Creat Clear Calc 110.8 Estimated GFR > 60 Random Glucose 93 Lactic Acid Calcium 8.6 Magnesium 1.6 Total Bilirubin 1.3 H AST 39 H ALT 23 Alkaline Phosphatase 60 Lactate Dehydrogenase Troponin I High Sens 137.4 H* 142.6 H* C-Reactive Protein Total Protein 5.9 L Albumin 3.6 TSH Beta HCG, Quant Urine Color Urine Appearance Urine pH Ur Specific [place] Urine Protein Urine Glucose (UA) Urine Ketones Urine Blood Urine Nitrite Ur Leukocyte Esterase Urine RBC Urine WBC Ur Squamous Epith Cells Urine Bacteria Hyaline Casts Urine Yeast Urine Test Influenza Type A (PCR) Influenza Type B (PCR) RSV RNA Qual (PCR) SARS-CoV-2 RNA (RT-PCR) Imaging Radiologist's impression: Impressions Chest X-Ray 07/31/24 17:50 IMPRESSION: Cardiomegaly with mild pulmonary vascular congestion. Electronically signed by: Agapito Welsh MD 07/31/2024 06:39 PM EST RP Chest CTA 07/31/24 19:37 IMPRESSION: 1. No evidence of pulmonary emboli. 2. Cardiomegaly with mild interstitial pulmonary edema and small bilateral pleural effusions. 3. A 2.1 cm hypoattenuating nodule in the right thyroid gland. Based on the recommendations of the ACR Incidental Thyroid Findings Committee (JACR 2014; 12(2):143-50), further evaluation by thyroid ultrasound is recommended for solitary incidental thyroid nodules greater than or equal to 1.5 cm in largest axial dimension in patients age 35 years and older who do not have limited life expectancy or significant morbidities, unless clinically warranted. Fleischner guidelines were followed. 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 Likely etiology is due to uncontrolled hypertension. Blood pressure is significantly elevated currently. Adding losartan 50 mg along with spironolactone 25 mg. 40 mg IV b.i.d. Lasix. We will check echocardiogram and then make further recommendations if there is cardiomyopathy. Monitor blood pressure closely. Monitor I's and O's closely. Potassium is low and hopefully improve with spironolactone. We will follow along with you. Thank you for allowing me to participate in the care of your patient. Please feel free to contact me if you have any questions. Procedures Date of Service Date of Service: 08/01/24
[2024-08-01] MEDS: Spironolactone 25 MG TABLET PO (10:39)
[2024-08-01] MEDS: Empagliflozin 10 MG TABLET PO (10:40)
[2024-08-01] MEDS: Losartan Potassium 50 MG TABLET PO (10:40)
[2024-08-01] MEDS: 0.9 % Sodium Chloride Flush 3 ML SYRINGE IVFLUSH ×3 (10:40→20:39)
[2024-08-01] MEDS: Furosemide 40 MG/4 ML VIAL IVPUSH ×2 (10:41→17:07)
[2024-08-01] MEDS: Enoxaparin Sodium 40 MG/0.4 ML SYRINGE SUBCUT (10:41)
--- NOTE | 2024-08-01 10:55 | MHC.CM.PN ---
Pt lives alone, she is independent, no home health services or DME. She does not have a PCP, brochure of [facility] providers given, and phone # for HHC. Pt is able to arrange transport home at [place]. DCP: home, self care. CM to follow for DC needs.
--- NOTE | 2024-08-01 16:29 | HO.PM.IMPN ---
Subjective Subjective Date of Service: 08/01/24 Interval History: Notes improvement after Lasix. No acute issues Review of Systems Denies chest pain Denies shortness of breath Denies nausea vomiting diarrhea Denies fever chills Physical Exam Vital Signs: Vital Signs: Last Vital Signs Temp 98.6 F 08/01/24 15:32 Pulse 95 08/01/24 15:32 Resp 18 08/01/24 15:32 BP 160/99 H 08/01/24 15:32 Pulse Ox 96 08/01/24 15:32 O2 Del Method Room Air 08/01/24 15:32 BMI result Body Mass Index 29.3 Const: Other: Awake alert no acute distress Resp: Other: Clear to auscultation bilaterally no rales rhonchi or wheezes Cardio: Other: No S4; positive S1-S2; no S3 murmurs rubs or gallops GI: Other: Soft nontender nondistended normoactive bowel sounds Extrem: Other: No edema bilaterally Objective Data Active Medications Acetaminophen (Acetaminophen 325 Mg Tablet) 650 mg PO Q6H PRN PRN Reason: Pain, Mild 1-3,fever,headache Calcium Carbonate (Calcium Carbonate 750 Mg Tab.Chew) 750 mg PO Q4H PRN PRN Reason: Heartburn Empagliflozin (Empagliflozin 10 Mg Tablet) 10 mg PO DAILY [facility] Last Admin: 08/01/24 10:40 Dose: 10 mg Documented By: GABE Enoxaparin Sodium (Enoxaparin Sodium 40 Mg/0.4 Ml Syringe) 40 mg SUBCUT Q24H [facility] Last Admin: 08/01/24 10:41 Dose: 40 mg Documented By: GABE Furosemide (Furosemide 40 Mg/4 Ml Vial) 40 mg IVPUSH BID@0900,1800 [facility]; Protocol Last Admin: 08/01/24 10:41 Dose: 40 mg Documented By: GABE Magnesium Hydroxide (Milk Of Magnesia 30 Ml Oral.Susp) 30 ml PO DAILY PRN PRN Reason: Constipation Melatonin (Melatonin 3 Mg Tablet) 6 mg PO BEDTIME PRN PRN Reason: Insomnia Ondansetron HCl (Ondansetron Hcl 4 Mg/2 Ml Vial) 4 mg IVPUSH Q8H PRN PRN Reason: Nausea and Vomiting Sacubitril/Valsartan (Sacubitril/Valsartan 49/51 1 Tab Tablet) 1 tab PO BID NADIRA; Protocol Sodium Chloride (0.9 % Sodium Chloride Flush 3 Ml Syringe) 3 ml IVFLUSH QSHIFT NADIRA Last Admin: 08/01/24 10:40 Dose: 3 ml Documented By: GABE Spironolactone (Spironolactone 25 Mg Tablet) 25 mg PO DAILY NADIRA; Protocol Last Admin: 08/01/24 10:39 Dose: 25 mg Documented By: GABE Labs 08/01/24 06:34 08/01/24 06:34 Labs: Laboratory Results - last 24 hr 07/31/24 07/31/24 07/31/24 18:16 18:30 19:03 MCV 82.9 MCH 26.9 L MCHC 32.4 RDW 14.7 Plt Count 382 MPV 9.9 Immature Gran % (Auto) 0.2 Neut % (Auto) 65.6 Lymph % (Auto) 28.9 [place] % (Auto) 4.8 Eos % (Auto) 0.2 Baso % (Auto) 0.3 Lymph # (Auto) 2.6 [place] # (Auto) 0.4 Eos # (Auto) 0.0 Baso # (Auto) 0.0 Abs Immat Gran (auto) 0.02 Absolute Neuts (auto) 6.0 Absolute Nucleated RBC 0.000 Nucleated RBC % (auto) 0.0 ESR PT 15.3 H INR 1.3 H APTT 28.0 D-Dimer High Sensitivty 292 Anion Gap 14 Estim Creat Clear Calc 104.6 Estimated GFR > 60 Random Glucose 147 H Lactic Acid 1.7 Calcium 8.9 Magnesium Total Bilirubin 1.5 H AST 33 H ALT 24 Alkaline Phosphatase 67 Lactate Dehydrogenase 261 H Troponin I High Sens 120.4 H* C-Reactive Protein 1.18 H Total Protein 6.3 L Albumin 3.9 TSH 3.42 Beta HCG, Quant < 2 Urine Color Dark Yellow Urine Appearance Cloudy Urine pH 5.0 Ur Specific [place] 1.025 Urine Protein 100 (2+) H Urine Glucose (UA) Negative Urine Ketones Trace Urine Blood Moderate (2+) H Urine Nitrite Negative Ur Leukocyte Esterase Negative Urine RBC 6-10 H Urine WBC 0-5 Ur Squamous Epith Cells >20 Urine Bacteria None Seen Hyaline Casts >20 Urine Yeast Present Urine Test NEGATIVE Influenza Type A (PCR) NEGATIVE Influenza Type B (PCR) NEGATIVE RSV RNA Qual (PCR) NEGATIVE SARS-CoV-2 RNA (RT-PCR) NEGATIVE 07/31/24 07/31/24 08/01/24 20:35 23:50 06:34 MCV 82.3 MCH 26.1 L MCHC 31.7 RDW 14.6 Plt Count 366 MPV 9.8 Immature Gran % (Auto) 0.3 Neut % (Auto) 64.6 Lymph % (Auto) 27.3 [place] % (Auto) 7.0 Eos % (Auto) 0.5 Baso % (Auto) 0.3 Lymph # (Auto) 2.4 [place] # (Auto) 0.6 Eos # (Auto) 0.0 Baso # (Auto) 0.0 Abs Immat Gran (auto) 0.03 Absolute Neuts (auto) 5.6 Absolute Nucleated RBC 0.000 Nucleated RBC % (auto) 0.0 ESR 2 PT INR APTT D-Dimer High Sensitivty Anion Gap 11 L Estim Creat Clear Calc 110.8 Estimated GFR > 60 Random Glucose 93 Lactic Acid Calcium 8.6 Magnesium 1.6 Total Bilirubin 1.3 H AST 39 H ALT 23 Alkaline Phosphatase 60 Lactate Dehydrogenase Troponin I High Sens 137.4 H* 142.6 H* C-Reactive Protein Total Protein 5.9 L Albumin 3.6 TSH Beta HCG, Quant Urine Color Urine Appearance Urine pH Ur Specific [place] Urine Protein Urine Glucose (UA) Urine Ketones Urine Blood Urine Nitrite Ur Leukocyte Esterase Urine RBC Urine WBC Ur Squamous Epith Cells Urine Bacteria Hyaline Casts Urine Yeast Urine Test Influenza Type A (PCR) Influenza Type B (PCR) RSV RNA Qual (PCR) SARS-CoV-2 RNA (RT-PCR) Assessment and Plan (1) Acute systolic (congestive) heart failure: Status: Acute (2) Hypertension: Status: Acute Plan A 43 years old lady with PMH of HTN presents to the hospital with 1 week of worsening dyspnea and orthopena; echo done today demonstrates LVEF of 20-25% 1. Acute systolic CHF (LVEF 20-25%) -add losartan and Aldactone as per Cardiology -Lasix 40 mg IV b.i.d. -follow clinically; if no response to therapies cardiology is considering transfer for diagnostic catheterization 2.Uncontrolled HTN -as above; losartan and Aldactone -follow response to therapies; will add amlodipine if clinically indicated 3.Thyroid nodule -outpatient workup Lovenox Full Code Requires ongoing hospitalization to treat acute systolic CHF along with specialty consultation Quality Stroke Does the patient have a stroke diagnosis?: No VTE Prior VTE?: No VTE Risk Level:: Medical - moderate - high VTE Device Contraindication: Treatment Not Indicated VTE Drug Contraindication: N/A - Med Ordered
[2024-08-01] MEDS: Potassium Chloride Packet 20 MEQ PACKET 40 MEQ PO (18:39)
[2024-08-01] MEDS: Sacubitril/Valsartan 49/51 1 TAB TABLET PO (20:38)
[2024-08-01 20:42] LABS: B Type Natriuretic Peptide 1662 pg/mL (<100)
[2024-08-02] VITALS: BP 163/90; PULSE 95; RESP 20; TEMP 36.1; O2SAT 95
[2024-08-02 03:53] VITALS: BP 157/93; PULSE 90; RESP 20; TEMP 36.1; O2SAT 94
[2024-08-02 06:08] LABS: MANUAL DIFF FLAG NO
[2024-08-02 06:15] LABS: Basophils Percent Auto 0.5 % (0-2); Eosinophils Absolute Auto 0.2 X10*3/uL (0.0-0.4); Hematocrit 46.8 % (37.0-47.0); Hemoglobin 14.7 g/dl (12.0-16.0); Imm Gran Abs Auto 0.03 X10*3/uL (0.00-0.03); Imm Gran Pct Auto 0.3 % (0.0-0.4); Lymphocytes Absolute Auto 2.8 X10*3/uL (1.2-4.9); Lymphocytes Percent Auto 32.4 % (20-40); Mean Corpuscular HGB Conc 31.4 g/dl (31.0-35.0); Mean Corpuscular Hemoglobin 26.2 pg (27.0-33.0); Mean Corpuscular Volume 83.3 fL (80.0-98.0); Mean Platelet Volume 9.9 fL (9.4-12.3); Monocytes Absolute Auto 0.6 X10*3/uL (0.1-1.2); Monocytes Percent Auto 6.7 % (2-11); Neutrophils Percent Auto 58.1 % (45-73); Platelet Count 404 X10*3/uL (160-400); Red Blood Count 5.62 X10*6/uL (4.20-5.50); Red Cell Distribution Width 15.4 % (11.0-16.0); White Blood Count 8.6 X10*3/uL (4.8-10.8)
[2024-08-02 06:43] LABS: Alanine Aminotransferase 22 U/L (0-31); Albumin Level 3.7 g/dL (3.5-5.0); Alkaline Phosphatase 68 U/L (39-117); Anion Gap 16 (12-20); Aspartate Amino Transferase 28 U/L (5-31); Bilirubin Total 0.9 mg/dL (0.0-1.0); Blood Urea Nitrogen 9 mg/dL (9-16); Calcium 8.6 mg/dL (8.4-10.2); Carbon Dioxide 26 mmol/L (22-29); Chloride 101 mmol/L (96-108); Creatinine Clr Calc Pharmacy 109.1; Estimated Glomerular Filt Rate > 60; Glucose Fasting 100 mg/dL (60-99); Potassium 2.7 mmol/L (3.3-5.1); Sodium 140 mmol/L (135-145); Total Protein 6.1 g/dL (6.5-8.0)
[2024-08-02 07:43] VITALS: BP 150/98; PULSE 80; RESP 18; TEMP 36.9; O2SAT 94
[2024-08-02] MEDS: Potassium Chloride/H20 10 MEQ/100 ML PIGGYBACK 100 MEQ IV (08:26)
[2024-08-02] MEDS: Sacubitril/Valsartan 49/51 1 TAB TABLET PO (08:27)
[2024-08-02] MEDS: Enoxaparin Sodium 40 MG/0.4 ML SYRINGE SUBCUT (08:27)
[2024-08-02] MEDS: Spironolactone 25 MG TABLET PO ×2 (08:27→09:02)
[2024-08-02] MEDS: Potassium Chloride ER 20 MEQ TAB.ER.PRT 40 MEQ PO (08:27)
[2024-08-02] MEDS: Empagliflozin 10 MG TABLET PO (08:27)
[2024-08-02] MEDS: Furosemide 40 MG/4 ML VIAL IVPUSH (08:27)
[2024-08-02] MEDS: 0.9 % Sodium Chloride Flush 3 ML SYRINGE IVFLUSH (08:28)
[2024-08-02] MEDS: Potassium Chloride Packet 20 MEQ PACKET 40 MEQ PO (09:00)
[2024-08-02 11:38] VITALS: BP 134/80; PULSE 100; RESP 17; TEMP 36.5; O2SAT 98
--- NOTE | 2024-08-02 13:15 | MHC.CM.PN ---
Emr reviewed, pt w/chf remains on IV lasix bid, cardiology recommending med changes and per hospitalist pt need cardiac cath, no plan for dc t this time, cm will cont to follow dc needs.
--- NOTE | 2024-08-02 14:45 | MHC.CM.PN ---
PT MEDICALLY CLEARED FOR DC HOME SELF CARE. PT TO ARRANGE TRANSPORT HOME
--- NOTE | 2024-08-02 14:47 | PM.PNCARD ---
Subjective Subjective Date of Service: 08/02/24 Interval history: Seen and examined at bedside. Physical Exam Vital Signs: Last Vital Signs Temp 97.7 F 08/02/24 11:38 Pulse 100 08/02/24 11:38 Resp 17 08/02/24 11:38 BP 134/80 08/02/24 11:38 Pulse Ox 98 08/02/24 11:38 O2 Del Method Room Air 08/02/24 11:38 BMI result Body Mass Index 29.3 GENERAL APPEARANCE: in no acute distress, pleasant. NECK: no carotid bruit, no jugular venous distention. SKIN: no suspicious lesions, warm and dry. HEART: no murmurs, regular rate and rhythm. LUNGS: clear to auscultation bilaterally. ABDOMEN: soft, nontender. EXTREMITIES: no edema. PERIPHERAL PULSES: equal. NEUROLOGIC: No gross deficits, AAO X 3 Objective Labs and Meds 08/02/24 05:30 08/02/24 05:30 Lab results: Laboratory Results - last 24 hr 07/31/24 08/02/24 18:16 05:30 WBC 8.6 RBC 5.62 H Hgb 14.7 Hct 46.8 MCV 83.3 MCH 26.2 L MCHC 31.4 RDW 15.4 Plt Count 404 H MPV 9.9 Immature Gran % (Auto) 0.3 Neut % (Auto) 58.1 Lymph % (Auto) 32.4 [place] % (Auto) 6.7 Eos % (Auto) 2.0 Baso % (Auto) 0.5 Lymph # (Auto) 2.8 [place] # (Auto) 0.6 Eos # (Auto) 0.2 Baso # (Auto) 0.0 Abs Immat Gran (auto) 0.03 Absolute Neuts (auto) 5.0 Absolute Nucleated RBC 0.000 Nucleated RBC % (auto) 0.0 Sodium 140 Potassium 2.7 L* Chloride 101 Carbon Dioxide 26 Anion Gap 16 BUN 9 Creatinine 0.68 Estim Creat Clear Calc 109.1 Estimated GFR > 60 Fasting Glucose 100 H Calcium 8.6 Total Bilirubin 0.9 AST 28 ALT 22 Alkaline Phosphatase 68 B-Natriuretic Peptide 1662 H Total Protein 6.1 L Albumin 3.7 Progress Note: A&P Assessment and plan (1) Acute systolic (congestive) heart failure: Status: Acute Assessment and Plan: 43 female with acute systolic CHF due to HTN. BP improving. Euvolemic. Entresto, spironolactone and Jardiance. Add low dose Coreg. f/u in office in few weeks. Time Spent With Patient Time: Total time managing care of this patient today ____ minutes. Progress Note: Quality Stroke Does the patient have a stroke diagnosis?: No Procedures Date of Service Date of Service: 08/02/24
--- NOTE | 2024-08-02 15:01 | PM.DS ---
DS: Providers Provider Date of Service: 08/02/24 Date of admission: 07/31/24 23:37 Date of discharge: 08/02/24 Primary care physician: None Physician Consults: 07/31/24 23:37 Consult to Cardiology Routine Consulting Provider: [facility] Reason for consultation: Dyspnea , Orthopnea, Edema, Elevated Trop I DS: Diagnosis Discharge Diagnosis (1) Acute systolic (congestive) heart failure: Status: Acute (2) Hypertension: Status: Acute DS: Summary Hospital Course Hospital Course: 43 years old lady with PMH of HTN presents to the hospital with 1 week of worsening dyspnea and orthopena. The patient reports getting sick 3 weeks ago with upper respiratory track infection with cough and myalgia that she did not completely recovered from as she started to feel more short of breath with exertion since then. over the last week she has been having more dyspnea with short distences and has to stop more often to catch her breath. she can not sleep on her back anymore and has been sleeping semi-sitting position. No chest pain, palpitations, vomiting, diarrhea or urinary symptoms. but she reported nausea on occasions. In ED found to be hypertensive and tachycardic. Elevated Trop of 126 and 138. EKG w LVH bit no ST\T wave changes to suggest ACS. BNP pending. CXR showed mild vascular congestion. CTA negative for PE but showing small effusions and congestion. will be admitted for further work up and management. Hospital course Patient admitted to telemetry where monitor failed to demonstrate any dysrhythmias. She was seen by Cardiology who recommended a 2D echo which demonstrated an LVEF of 20-25%. She was diuresed with good results and essentially asymptomatic after 24 hours. Given all the Lasix, her potassium needed to be repleted aggressively. At this point in time, Lasix, Jardiance, Coreg, and Aldactone has been added to her regimen.. At this time she is medically acceptable for discharge and she will follow up with labs in a.m. Time Attestation Discharge Coordination Time (in mins): 35 Quality: Safe Use of Opioids Does Pt have an Active Cancer Diagnosis on the Problem List?: No Quality: Stroke Does the patient have a stroke diagnosis?: No Physical Exam Vital Signs: Vital Signs: Last Vital Signs Temp 97.7 F 08/02/24 11:38 Pulse 100 08/02/24 11:38 Resp 17 08/02/24 11:38 BP 134/80 08/02/24 11:38 Pulse Ox 98 08/02/24 11:38 O2 Del Method Room Air 08/02/24 11:38 BMI result Body Mass Index 29.3 Const: Other: Awake alert no acute distress Resp: Other: Clear to auscultation bilaterally no rales rhonchi or wheezes Cardio: Other: No S4; positive S1-S2; no S3 murmurs rubs or gallops GI: Other: Soft nontender nondistended normoactive bowel sounds Extrem: Other: No edema bilaterally DS: Data Data Completed and Pending Labs on day of discharge: Laboratory Results - last 24 hr 07/31/24 08/02/24 18:16 05:30 WBC 8.6 RBC 5.62 H Hgb 14.7 Hct 46.8 MCV 83.3 MCH 26.2 L MCHC 31.4 RDW 15.4 Plt Count 404 H MPV 9.9 Immature Gran % (Auto) 0.3 Neut % (Auto) 58.1 Lymph % (Auto) 32.4 [place] % (Auto) 6.7 Eos % (Auto) 2.0 Baso % (Auto) 0.5 Lymph # (Auto) 2.8 [place] # (Auto) 0.6 Eos # (Auto) 0.2 Baso # (Auto) 0.0 Abs Immat Gran (auto) 0.03 Absolute Neuts (auto) 5.0 Absolute Nucleated RBC 0.000 Nucleated RBC % (auto) 0.0 Sodium 140 Potassium 2.7 L* Chloride 101 Carbon Dioxide 26 Anion Gap 16 BUN 9 Creatinine 0.68 Estim Creat Clear Calc 109.1 Estimated GFR > 60 Fasting Glucose 100 H Calcium 8.6 Total Bilirubin 0.9 AST 28 ALT 22 Alkaline Phosphatase 68 B-Natriuretic Peptide 1662 H Total Protein 6.1 L Albumin 3.7 Preliminary micro results at discharge 07/31/24 19:10 Blood Culture - Preliminary Blood - Venous No growth after 24 hours. 07/31/24 19:03 Blood Culture - Preliminary Blood - Venous No growth after 24 hours. Discharge Plan Discharge Anticipated Discharge Date/Time: 08/02/24 14:36 Patient Disposition: Home, Self-Care Discharge Diagnosis: Acute systolic heart failure Referrals: Physician,None [Primary Care Provider] - 1 Week Discharge Medications: New Jardiance 10 mg Tablet 10 mg PO DAILY Qty: 30 3RF sacubitril-valsartan [Entresto] 49-51 mg Tablet 1 tab PO BID Qty: 60 3RF Protocol: Hold for SBP< HOLD for SBP < : 90 spironolactone [Aldactone] 25 mg tablet 25 mg PO DAILY Qty: 30 3RF furosemide [Lasix] 40 mg tablet 40 mg PO DAILY Qty: 30 3RF carvedilol [Coreg] 3.125 mg tablet 3.125 mg PO BID Qty: 60 3RF Rx Instructions: must administer with a meal/food Discontinued valsartan-hydrochlorothiazide 320-25 mg Tablet 1 tab PO DAILY Patient Comments: Pt takes Co-Dovian 320mg/25mg, not available in [place]. Gets from [place]. Discharge Orders: Discharge Order (Routine); Ordered 08/02/24 Ordered By: Chuck Funes Diet: Advance to usual diet Activity on Discharge: As tolerated Stand Alone Forms: Patient Portal Discharge page Print Language: Ghanaian Other Ambulatory Orders: Basic Metabolic Panel (Routine) Timeframe: 1 Day Facility: [facility] - Location: Laboratory Ordered By: Chuck Funes Care Plan Goals: Jardiance 10 mg daily along with Coreg 3.125 mg twice daily along with spironolactone 25 mg daily and Lasix 40 mg daily has been added to your regimen. Health Concerns: Follow up with Cardiology. Dr. Rodriguez's office will call you with an appointment Plan of Treatment: You need to get labs done tomorrow at [facility] to check your potassium. I will follow up your labs and call you Assessment: See discharge summary
== END 2024-08-02 16:00 | disposition home or self-care (01) | DRG 194 ==
LOC: HO.ED 22:31 → HO.EDOVER 08-01 00:06 → HO.IMC 08-01 01:45
PROVIDERS: Physician Assistant; Admitting Provider Student in an Organized Health Care Education/Training Program; Emergency Provider Emergency Medicine; Visit Provider Hospitalist
DX: I11.0 Hypertensive heart disease with heart failure (principal); E04.1 Nontoxic single thyroid nodule; I50.21 Acute systolic (congestive) heart failure; F17.210 Nicotine dependence, cigarettes, uncomplicated; Z20.822 Contact with and (suspected) exposure to COVID-19; Z71.6 Tobacco abuse counseling; Z79.899 Other long term (current) drug therapy
CPT/HCPCS: 0241U; 36415; 71045; 71275; 80053; 81001; 81025; 83605; 83615; 83735; 83880; 84443; 84484; 84702; 85025; 85379; 85610; 85652; 85730; 86140; 87040; 93005; 93306; 99285; J1650; J1940; J1956; J3480; Q9957; Q9967

== ENCOUNTER 2024-07-31 23:37 | Outpatient (BNV) | payer SELFPAY | END 2024-08-01 07:00 | PROVIDERS: Admitting Provider Student in an Organized Health Care Education/Training Program; Emergency Provider Emergency Medicine; Visit Provider Internal Medicine Cardiovascular Disease | DX: I34.0 Nonrheumatic mitral (valve) insufficiency (principal) | CPT/HCPCS: 93306 ==

== ENCOUNTER → 2024-07-31 23:37 | Outpatient (BNV) | payer SELFPAY | PROVIDERS: Admitting Provider Student in an Organized Health Care Education/Training Program; Emergency Provider Emergency Medicine; Visit Provider Student in an Organized Health Care Education/Training Program | DX: R79.89 Other specified abnormal findings of blood chemistry (principal); E04.1 Nontoxic single thyroid nodule; I50.21 Acute systolic (congestive) heart failure; I10 Essential (primary) hypertension | CPT/HCPCS: 99222; 99232; 99239 ==

== ENCOUNTER → 2024-07-31 23:37 | Outpatient (BNV) | payer SELFPAY | PROVIDERS: Admitting Provider Student in an Organized Health Care Education/Training Program; Emergency Provider Emergency Medicine; Visit Provider Internal Medicine Cardiovascular Disease | DX: I50.21 Acute systolic (congestive) heart failure (principal) | CPT/HCPCS: 93010; 99223; 99232 ==

== ENCOUNTER 2024-08-05 10:30 | Outpatient (REF) | payer MEDICAID, OTHER, SELFPAY ==
[2024-08-05 12:01] LABS: Anion Gap 12 (12-20); Blood Urea Nitrogen 11 mg/dL (9-16); Carbon Dioxide 24 mmol/L (22-29); Chloride 109 mmol/L (96-108); Estimated Glomerular Filt Rate > 60; Glucose Random 111 mg/dL (60-115); Potassium 4.5 mmol/L (3.3-5.1); Sodium 140 mmol/L (135-145)
== END 2024-08-05 10:31 | disposition home or self-care (01) ==
LOC: HO.LAB 10:30
PROVIDERS: Visit Provider Hospitalist
DX: E87.6 Hypokalemia (principal)
CPT/HCPCS: 36415; 80048

== ENCOUNTER 2024-09-02 10:15 | Outpatient (AMB) | payer MEDICAID, SELFPAY ==
--- NOTE | 2024-09-02 10:21 | A.OFFVIS_ITS ---
Vital Signs 09/02/24 10:24 Height 5 ft 5 in Weight 173 lb 11.588 oz BMI 28.9 BP 140/90 H Blood Pressure Location Lt brachial Position Sitting Pulse 103 H Pulse Source Monitor Intake Visit Reasons: 1 mth f/up per KM CHF Intake Note: 1 mth f/up/CHF Cnc Maintenance Technician Required: No Accompanied by: Self / Same As Patient Allergies honey Allergy (Verified 08/01/24 06:31) Swelling Medication List - Last Reconciled 09/02/24 by Atif Rodriguez MD carvedilol (Coreg) 3.125 mg PO BID empagliflozin (Jardiance) 10 mg PO DAILY furosemide (Lasix) 40 mg PO DAILY sacubitril-valsartan 49-51 mg (Entresto) 1 tab See Protocol PO BID spironolactone (Aldactone) 25 mg PO DAILY HPI Comments Details: 44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 Echocardiography confirmed severe cardiomyopathy and she was started on guideline directed medical therapy. She was eventually discharged home. Clinically she has done well since then and is doing much better with significant improvement in symptoms. Her blood pressure continues to be mildly elevated. She is taking Jardiance, Lasix, Entresto and spironolactone. No anginal symptoms. EKGs showing left ventricular hypertrophy. [facility] Medical History (Updated 09/02/24 @ 10:46 by Atif Rodriguez MD) Acute systolic (congestive) heart failure Thyroid nodule CHF (congestive heart failure) Hypertension Family History (Updated 09/02/24 @ 10:26 by Jemma Parham CMA) Paternal Grandfather Heart attack Social History (Updated 09/02/24 @ 10:26 by Jemma Parham CMA) Household Members: None Housing: Apartment Do you presently have visiting nurse or other home services: No Alcohol intake: never Patient Tobacco Use Status: Current everyday Tobacco user Tobacco use type: Cigarette Cigarettes Per Day: 2 service: No Review of Systems Const Denies chills, Denies fatigue, Denies fever(s), Denies frequent falls, Denies weakness, Denies weight gain and Denies weight loss ENT Denies dizziness Card Denies chest pain, Denies leg edema, Denies lightheadedness, Denies palpitations, Denies dyspnea and Denies dyspnea on exertion Resp Denies cough, Denies dyspnea and Denies dyspnea on exertion GI Denies hematochezia Musc Denies abnormal gait, Denies muscle weakness, Denies numbness, Denies radiating pain into limb and Denies tingling Neuro Denies abnormal gait, Denies dizziness, Denies frequent falls, Denies numbness, Denies tingling and Denies weakness Endo Denies fatigue and Denies palpitations Physical Exam Vital Signs: Last Vital Signs Pulse 103 H 09/02/24 10:24 BP 140/90 H 09/02/24 10:24 BMI result Body Mass Index 28.9 Last Vital Signs Temp 97.7 F 08/02/24 11:38 Pulse 100 08/02/24 11:38 Resp 17 08/02/24 11:38 BP 134/80 08/02/24 11:38 Pulse Ox 98 08/02/24 11:38 O2 Del Method Room Air 08/02/24 11:38 BMI result Body Mass Index 29.3 GENERAL APPEARANCE: in no acute distress, pleasant. NECK: no carotid bruit, no jugular venous distention. SKIN: no suspicious lesions, warm and dry. HEART: no murmurs, regular rate and rhythm. LUNGS: clear to auscultation bilaterally. ABDOMEN: soft, nontender. EXTREMITIES: no edema. PERIPHERAL PULSES: equal. NEUROLOGIC: No gross deficits, AAO X 3 Office Procedures EKG Details: Sinus tachycardia 103 beats per minute, normal axis, left ventricular hypertrophy with repolarization changes, QTC 482 milliseconds. [id number], Complete Assessment & Plan Assessment & Plan (1) Acute systolic (congestive) heart failure: Code(s): I50.21 - Acute systolic (congestive) heart failure Category: Medical Plan Pleasant 44-year-old lady here for follow-up. She recently was seen at [facility] for acute systolic heart failure. She was diuresed and started on guideline directed medical therapy. Overall she has been improving with this strategy. Increasing carvedilol to 6.25 mg twice a day. We will see her back in few months and we will repeat echocardiography at that stage. Currently we will hold off on ischemic evaluation but if she has any exertional angina then we may pursue further assessment. She continues to smoke but is cutting back and I have advised her to quit smoking for its benefit in the long run given her young age. Thank you for allowing me to participate in the care of your patient. Please feel free to contact me if you have any questions. Medications: New carvedilol must administer with a meal/food 6.25 mg PO BID 180 tabs 3RF Discontinued carvedilol (Coreg) must administer with a meal/food Discontinued Reason: Doctor's Order 3.125 mg PO BID 60 tabs 3RF Coding Level of Care Code Est Pt Level 4 (15385) Diagnoses Acute systolic (congestive) heart failure I50.21 CPT Codes EKG - CPT: 49026-[id number], Complete ([id number])
[2024-09-02 10:24] VITALS: BP 140/90; PULSE 103; BMI 28.9
== END 2024-09-02 11:00 | disposition home or self-care (01) ==
PROVIDERS: Visit Provider Internal Medicine Cardiovascular Disease
DX: I50.21 Acute systolic (congestive) heart failure (principal)
CPT/HCPCS: 93010; 99214

== ENCOUNTER → 2024-09-02 10:15 | Outpatient (BNVA) | payer MEDICAID, OTHER, SELFPAY | PROVIDERS: Visit Provider Internal Medicine Cardiovascular Disease | DX: I50.21 Acute systolic (congestive) heart failure (principal) | CPT/HCPCS: 93005; 99212 ==

== ENCOUNTER 2025-08-01 03:18 | Emergency (ER) | payer SELFPAY ==
[2025-08-01 03:22] VITALS: BP 225/106; PULSE 95; RESP 20; TEMP 36.7; O2SAT 98; BMI 31.3
[2025-08-01 04:37] LABS: Hematocrit 41.8 % (37.0-47.0); Hemoglobin 13.6 g/dl (12.0-16.0); Imm Gran Abs Auto 0.03 X10*3/uL (0.00-0.03); Imm Gran Pct Auto 0.3 % (0.0-0.4); Lymphocytes Absolute Auto 3.2 X10*3/uL (1.2-4.9); MANUAL DIFF FLAG NO; Mean Corpuscular HGB Conc 32.5 g/dl (31.0-35.0); Mean Corpuscular Hemoglobin 28.5 pg (27.0-33.0); Mean Corpuscular Volume 87.6 fL (80.0-98.0); NRBC Abs Auto 0.000 X10*3/uL (0.0-0.012); NRBC Pct Auto 0.0 /100WBC (0.0-0.2); Platelet Count 368 X10*3/uL (160-400); Red Blood Count 4.77 X10*6/uL (4.20-5.50); White Blood Count 9.3 X10*3/uL (4.8-10.8)
[2025-08-01 04:53] LABS: Alanine Aminotransferase 23 U/L (0-31); Albumin Level 4.9 g/dL (3.5-5.0); Alkaline Phosphatase 54 U/L (39-117); Anion Gap 14 (12-20); Aspartate Amino Transferase 22 U/L (5-31); Blood Urea Nitrogen 6 mg/dL (9-16); Calcium 10.3 mg/dL (8.4-10.2); Carbon Dioxide 25 mmol/L (22-29); Chloride 108 mmol/L (96-108); Creatinine Clr Calc Pharmacy 122.2; Estimated Glomerular Filt Rate > 60; Potassium 3.9 mmol/L (3.3-5.1); Sodium 143 mmol/L (135-145); Total Protein 7.4 g/dL (6.5-8.0)
[2025-08-01 05:12] LABS: Appearance Urine Clear; Glucose Urine UA 100 mg/dL (Negative); PH 5.0 (5.0-9.0); Specific Gravity - Urine 1.010 (1.005-1.025); UMIC TRIGGER UACC YES
--- NOTE | 2025-08-01 06:42 | ED.GENADULT ---
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 Denies abdominal pain states that pain wraps up around her ribcage up to the front. She was noted to be hypotensive initially she is getting her medications for blood pressure approved on Monday she states she was dealing with the insurance issues has been using only carvedilol out of her other medications but no headaches no vision changes. Related Data Previous Rx's ?Medication ?Instructions ?Recorded carvedilol 6.25 mg tablet 6.25 mg PO BID #180 tabs 09/02/24 empagliflozin 10 mg tablet 10 mg PO DAILY #90 tabs 01/15/25 (Jardiance) furosemide 40 mg tablet 40 mg PO DAILY #90 tabs 01/15/25 sacubitril 49 mg-valsartan 51 mg 1 tab PO BID #180 tabs 01/15/25 tablet (Entresto) spironolactone 25 mg tablet 25 mg PO DAILY #90 tabs 01/15/25 cyclobenzaprine 10 mg tablet 10 mg PO BEDTIME #7 tabs 08/01/25 lidocaine 5 % topical patch 1 patch topical DAILY #15 ea 08/01/25 naproxen 500 mg tablet 500 mg PO BID 5 days #10 tabs 08/01/25 Allergies Allergy/AdvReac Type Severity Reaction Status Date / Time honey Allergy Swelling Verified 08/01/25 03:29 Review of Systems Constitutional: Constitutional: Reports as per [facility] Past Medical History Medical History (Updated 08/01/25 @ 07:23 by Aguilar Zurita DO) Acute systolic (congestive) heart failure Thyroid nodule CHF (congestive heart failure) Hypertension Family History Family History (Updated 09/02/24 @ 10:26 by Jemma Parham CMA) Paternal Grandfather Heart attack Social History Social History (Updated 09/02/24 @ 10:26 by Jemma M Chidi Parham, SALES COMMUNICATIONS MANAGER) Household Members: None Housing: Apartment Do you presently have visiting nurse or other home services: No Alcohol intake: never Patient Tobacco Use Status: Current everyday Tobacco user Tobacco use type: Cigarette Cigarettes Per Day: 2 Advance Directives: No Advance Directives Information Provided: Yes service: No Physical Exam ED Exam Exam: ?General: ??looks age appropriate ?CV: RRR, no obvious murmurs appreciated ?Resp: ?No wheezing rales rhonchi no stridor moving air well Abd: ?Bowel sounds are present, no tenderness no rebound no rigidity MSK: FROM, strength 5/5 all extremities, paraspinal muscle tenderness no midline tenderness, good strength bilateral lower extremities, no sensory deficits generally the bilateral lower extremities Skin: Warm, dry, intact, ?Neuro: ?Alert and oriented x3, moving upper and lower extremities symmetrically, no obvious facial asymmetry noted, cranial nerves 2-12 intact Vital Signs: Vital Signs - 24 hr 08/01/25 03:22 08/01/25 07:02 Temperature 98.1 F Pulse Rate 95 Respiratory Rate 20 Blood Pressure 225/106 H 135/78 Pulse Oximetry 98 Oxygen Delivery Method Room Air BMI result Body Mass Index 31.3 Medications Administered Discontinued Medications Generic Name Dose Route Start Last Admin Trade Name Freq PRN Reason Stop Dose Admin Ketorolac Tromethamine 15 mg 08/01/25 06:44 08/01/25 07:02 Ketorolac Tromethamine 15 Mg/Ml Vial IM 08/01/25 06:45 15 mg ONCE ONE Administration Lidocaine 1 patch 08/01/25 06:44 08/01/25 07:02 Lidocaine 4 % Patch Adh..Patch TRANSDERMA 08/01/25 06:45 1 patch ONCE ONE Administration Protocol Spironolactone 25 mg 08/01/25 06:44 08/01/25 07:02 Spironolactone 25 Mg Tablet PO 08/01/25 06:45 25 mg ONCE ONE Administration Protocol Medical Decision Making Medical Decision Making MDM Narrative: 7:18 AM 08/01/2025 (Dr. Aguilar Zurita): As far as patient's blood pressure and she came in quite hypotensive I provided her with her other medications for blood pressure and her blood pressure did improve, her workup did not reveal any evidence for OSCAR, or UTI, the pain that she is describing is musculoskeletal without red flags for other considerations as listed below, and she has been on abdominal exam did not feel further imaging for that as indicated Differential Diagnosis Differential Diagnoses: The differential diagnosis associated with the presentation includes (Low back pain differential) Admission/Observation Consideration of admission/observation: Escalation of care including admission/observation considered Lab Data MDM Lab Attestation statement: I reviewed the patient's lab results. 08/01/25 04:32 08/01/25 04:32 Labs: Lab Results 08/01/25 08/01/25 Range/Units 04:32 05:05 WBC 9.3 (4.8-10.8) X10*3/uL RBC 4.77 (4.20-5.50) X10*6/uL Hgb 13.6 (12.0-16.0) g/dl Hct 41.8 (37.0-47.0) % MCV 87.6 (80.0-98.0) fL MCH 28.5 (27.0-33.0) pg MCHC 32.5 (31.0-35.0) g/dl RDW 13.7 (11.0-16.0) % Plt Count 368 (160-400) X10*3/uL MPV 8.9 L (9.4-12.3) fL Immature Gran % (Auto) 0.3 (0.0-0.4) % Neut % (Auto) 58.1 (45-73) % Lymph % (Auto) 34.1 (20-40) % [place] % (Auto) 5.6 (2-11) % Eos % (Auto) 1.6 (0-4) % Baso % (Auto) 0.3 (0-2) % Lymph # (Auto) 3.2 (1.2-4.9) X10*3/uL [place] # (Auto) 0.5 (0.1-1.2) X10*3/uL Eos # (Auto) 0.2 (0.0-0.4) X10*3/uL Baso # (Auto) 0.0 (0.0-0.2) X10*3/uL Abs Immat Gran (auto) 0.03 (0.00-0.03) X10*3/uL Absolute Neuts (auto) 5.4 (2.0-8.3) x10*3/uL Absolute Nucleated RBC 0.000 (0.0-0.012) X10*3/uL Nucleated RBC % (auto) 0.0 (0.0-0.2) /100WBC Sodium 143 (135-145) mmol/L Potassium 3.9 (3.3-5.1) mmol/L Chloride 108 (96-108) mmol/L Carbon Dioxide 25 (22-29) mmol/L Anion Gap 14 (12-20) BUN 6 L (9-16) mg/dL Creatinine 0.62 (0.5-1.4) mg/dL Estim Creat Clear Calc 122.2 Estimated GFR > 60 Random Glucose 105 (60-115) mg/dL Calcium 10.3 H D (8.4-10.2) mg/dL Total Bilirubin 0.4 (0.0-1.0) mg/dL AST 22 (5-31) U/L ALT 23 (0-31) U/L Alkaline Phosphatase 54 (39-117) U/L Total Protein 7.4 (6.5-8.0) g/dL Albumin 4.9 (3.5-5.0) g/dL Urine Color Yellow Urine Appearance Clear Urine pH 5.0 (5.0-9.0) Ur Specific [place] 1.010 (1.005-1.025) Urine Protein Negative (Neg-Trace) mg/dL Urine Glucose (UA) 100 H (Negative) mg/dL Urine Ketones Negative (Negative) mg/dL Urine Blood Small (1+) H (Negative) Urine Nitrite Negative (Negative) Ur Leukocyte Esterase Negative (Negative) Urine RBC 0-2 (0-2) /HPF Urine WBC 0-5 (0-5) /HPF Ur Squamous Epith Cells 3-5 (0-2) /HPF Urine Bacteria None Seen (None Seen) Hyaline Casts 0-2 (0-2) /LPF Discharge Plan Discharge Clinical Impression: Low back pain, Poorly-controlled hypertension Additional Instructions: As far as your back pain use cyclobenzaprine only before bedtime or when not operating a motor vehicle as it can make you drowsy Naprosyn 500 mg twice daily Tylenol 975 mg every 6 hours for additional pain control I also provided you with medications for blood pressure with improvement in your symptoms, please make sure to restart her medications when you pick them up Your blood work urinalysis unremarkable Any other issues concerns come back to the ER Prescriptions: New cyclobenzaprine 10 mg tablet 10 mg PO BEDTIME Qty: 7 0RF lidocaine 5 % adhesive patch,medicated 1 patch topical DAILY Qty: 15 0RF Rx Instructions: leave on most painful area for up to 12 hrs naproxen 500 mg tablet 500 mg PO BID 5 Days Qty: 10 0RF No Action Entresto 49-51 mg tablet 1 tab PO BID Qty: 180 3RF furosemide 40 mg tablet 40 mg PO DAILY Qty: 90 3RF Jardiance 10 mg tablet 10 mg PO DAILY Qty: 90 3RF spironolactone 25 mg tablet 25 mg PO DAILY Qty: 90 3RF carvedilol 6.25 mg tablet 6.25 mg PO BID Qty: 180 3RF Rx Instructions: must administer with a meal/food Stand Alone Forms: Work/School Release Print Language: Turkish
[2025-08-01 07:02] VITALS: BP 135/78
[2025-08-01] MEDS: Lidocaine 4 % Patch ADH..PATCH 1 PATCH TRANSDERMA (07:02)
[2025-08-01 07:22] VITALS: BP 135/78
[2025-08-01] MEDS: Sacubitril/Valsartan 49/51 1 TAB TABLET PO (07:22)
[2025-08-01 07:41] VITALS: BP 140/70; PULSE 70; RESP 16; TEMP 36.2; O2SAT 96
[2025-08-01 07:43] VITALS: BP 140/70; PULSE 70; RESP 16; TEMP 36.2; O2SAT 96
== END 2025-08-01 07:44 | disposition home or self-care (01) ==
PROVIDERS: Emergency Provider Emergency Medicine
DX: M54.50 Low back pain, unspecified (principal); I10 Essential (primary) hypertension
CPT/HCPCS: 36415; 80053; 81001; 85025; 96372; 99284; J1885